=== PATIENT | male | born 1950 | race Caucasian/White ===

== ENCOUNTER 2017-10-08 15:07 | Emergency (ER) | payer MEDICARE ==
[~2017-10-08] VITALS: Ht 170.2 cm; Wt 74.8 kg
[~2017-10-08 15:07] MED LIST: CYCL10 PO; Cymbalta60 MG PO; HYDR1TAB94 PO; IBUP600 PO; IBUP800 PO; LISI20 PO; MELO7.5 PO; Norco 5-325 Ta1 EACH PO; OXYACE5T PO; PRED20 PO; Ultram50 MG PO
[2017-10-08] MEDS ORDERED: Norco 5-325 Ta1 EACH PO (15:50)
== END 2017-10-08 16:00 | disposition home or self-care (01) ==
LOC: ER 15:07
DX: S68.021A Partial traumatic metacarpophalangeal amputation of right thumb, initial encounter (principal); I10 Essential (primary) hypertension; F17.210 Nicotine dependence, cigarettes, uncomplicated; Z88.8 Allergy status to other drugs, medicaments and biological substances; Z79.899 Other long term (current) drug therapy; W27.0XXA Contact with workbench tool, initial encounter
CPT/HCPCS: 73140; 99283

== ENCOUNTER 2018-03-14 11:32 | Emergency (ER) | payer MEDICARE ==
[~2018-03-14] VITALS: Ht 167.6 cm; Wt 68.0 kg
[2018-03-14 12:04] LABS: Source, Urine Voided
[2018-03-14 12:07] LABS: BASOPHILS ABSOLUTE AUTO 0.04 K/mm3 (0.00-0.23); BASOPHILS PERCENT AUTO 1 % (0-2); EOSINOPHILS ABSOLUTE AUTO 0.13 K/mm3 (0.00-0.68); EOSINOPHILS PERCENT AUTO 2 % (0-6); Hematocrit 43.2 % (37.0-53.0); Hemoglobin 14.7 g/dL (13.5-17.5); IMMATURE GRAN ABSOLUTE AUTO 0.01 K/mm3 (0.00-0.10); IMMATURE GRAN PERCENT AUTO 0 % (0-1); LYMPHOCYTES ABSOLUTE AUTO 1.37 K/mm3 (0.84-5.20); LYMPHOCYTES PERCENT AUTO 21 % (21-46); MONOCYTES ABSOLUTE AUTO 0.63 K/mm3 (0.16-1.47); MONOCYTES PERCENT AUTO 9 % (4-13); Mean Corpuscular HGB 32.7 pg (26.0-34.0); Mean Corpuscular Volume 96 fL (80-100); Mean Platelet Volume 11.7 fL (9.1-12.4); NEUTROPHILS PERCENT AUTO 68 % (41-73); Platelet Count 188 K/mm3 (150-400); RDW Coefficient Variation 13.2 % (11.7-14.2); RDW Standard Deviation 46.6 fL (35.1-46.3); Red Blood Cell Count 4.49 M/mm3 (4.30-5.90); White Blood Cell Count 6.68 K/mm3 (4.00-11.30)
[2018-03-14 12:10] LABS: Appearance, Urine Clear (Clear); Bilirubin, Urine Neg (Neg); Blood, Urine 1+ (Neg); Color, Urine Amber (P-Yellow); Glucose Qualitative, Urine Neg (Neg); Ketones, Urine Neg (Neg); Leukocyte Esterase, Urine 1+ (Neg); Nitrite, Urine Neg (Neg); Protein, Urine 2+ (Neg); Urobilinogen, Urine 1+ (Normal)
[2018-03-14 12:26] LABS: Alanine Aminotransfer (ALT/SGP 25 U/L (12-78); Albumin, Blood 3.8 g/dL (3.4-5.0); Albumin/Globulin Ratio 1.1 (0.8-1.8); Alk Phos 79 U/L (50-136); Anion Gap 8 mmol/L (6-16); Aspartate Aminotrans (AST/SGOT 17 U/L (12-37); Bilirubin, Total 0.4 mg/dL (0.1-1.0); Blood Urea Nitrogen 17 mg/dL (8-24); Bun/Creatinine Ratio 13.9 (12.0-20.0); CO2, Blood 26 mmol/L (21-32); Calcium, Blood 8.7 mg/dL (8.5-10.1); Chloride, Blood 108 mmol/L (98-108); Creatinine, Blood 1.22 mg/dL (0.60-1.20); Globulin, Blood 3.6 g/dL (2.2-4.0); Glomerular Filtration Rate >60 (60-); Glucose, Blood 98 mg/dL (70-99); Potassium, Blood 3.7 mmol/L (3.5-5.5); Sodium, Blood 142 mmol/L (136-145); Total Protein, Blood 7.4 g/dL (6.4-8.2)
[2018-03-14 12:30] LABS: Hyaline Casts 0-2 /lpf (0-2)
[2018-03-14 12:32] LABS: Bacteria Few /hpf; Squamous Epithelial Cells Few /hpf (Few)
[2018-03-14] MEDS ORDERED: VICODIN 5-3001 EACH PO (14:58)
== END 2018-03-14 15:04 | disposition home or self-care (01) ==
LOC: ER 11:32
PROVIDERS: Emergency Medicine
DX: N20.0 Calculus of kidney (principal); Z88.8 Allergy status to other drugs, medicaments and biological substances; Z79.899 Other long term (current) drug therapy; I10 Essential (primary) hypertension; F17.210 Nicotine dependence, cigarettes, uncomplicated
CPT/HCPCS: 36415; 74176; 80053; 81001; 83690; 85025; 87086; 93005; 93010; 96374; 99284-25; J3010

== ENCOUNTER 2018-09-10 10:14 | Inpatient (IN) | payer MEDICARE ==
[~2018-09-10] VITALS: Ht 170.2 cm; Wt 65.1 kg
[~2018-09-10 10:14] MED LIST changes: +VICODIN 5-3001 EACH PO
[2018-09-10] MEDS ORDERED: LISI20 PO (10:50)
[2018-09-10 10:53] LABS: BASOPHILS ABSOLUTE AUTO 0.04 K/mm3 (0.00-0.23); BASOPHILS PERCENT AUTO 1 % (0-2); EOSINOPHILS ABSOLUTE AUTO 0.14 K/mm3 (0.00-0.68); EOSINOPHILS PERCENT AUTO 2 % (0-6); Hematocrit 46.4 % (37.0-53.0); Hemoglobin 15.2 g/dL (13.5-17.5); IMMATURE GRAN ABSOLUTE AUTO 0.02 K/mm3 (0.00-0.10); IMMATURE GRAN PERCENT AUTO 0 % (0-1); LYMPHOCYTES ABSOLUTE AUTO 1.42 K/mm3 (0.84-5.20); LYMPHOCYTES PERCENT AUTO 17 % (21-46); MONOCYTES ABSOLUTE AUTO 0.66 K/mm3 (0.16-1.47); MONOCYTES PERCENT AUTO 8 % (4-13); Mean Corpuscular HGB Conc 32.8 g/dL (31.5-36.5); Mean Corpuscular Volume 98 fL (80-100); Mean Platelet Volume 11.8 fL (9.1-12.4); NEUTROPHILS ABSOLUTE AUTO 5.93 K/mm3 (1.96-9.15); NEUTROPHILS PERCENT AUTO 72 % (41-73); Platelet Count 202 K/mm3 (150-400); RDW Coefficient Variation 13.9 % (11.7-14.2); RDW Standard Deviation 50.7 fL (35.1-46.3); Red Blood Cell Count 4.75 M/mm3 (4.30-5.90); White Blood Cell Count 8.21 K/mm3 (4.00-11.30)
[2018-09-10 11:24] LABS: Alanine Aminotransfer (ALT/SGP 28 U/L (12-78); Albumin, Blood 3.9 g/dL (3.4-5.0); Albumin/Globulin Ratio 1.1 (0.8-1.8); Alk Phos 89 U/L (50-136); Anion Gap 6 mmol/L (6-16); Aspartate Aminotrans (AST/SGOT 23 U/L (12-37); Bilirubin, Total 0.7 mg/dL (0.1-1.0); Blood Urea Nitrogen 20 mg/dL (8-24); Bun/Creatinine Ratio 21.3 (12.0-20.0); CO2, Blood 25 mmol/L (21-32); Calcium, Blood 8.8 mg/dL (8.5-10.1); Chloride, Blood 108 mmol/L (98-108); Creatinine, Blood 0.94 mg/dL (0.60-1.20); Globulin, Blood 3.6 g/dL (2.2-4.0); Glomerular Filtration Rate >60 (60-); Glucose, Blood 102 mg/dL (70-99); Sodium, Blood 139 mmol/L (136-145); Total Protein, Blood 7.5 g/dL (6.4-8.2)
[2018-09-10 11:35] LABS: Troponin I 0.148 ng/mL (0.000-0.040)
--- NOTE | 2018-09-10 14:56 | NUR ---
ECHOCARDIOGRAM COMPLETED
--- NOTE | 2018-09-10 21:00 | NUR ---
PATIENT IS A NEW ADMIT FROM THE ED. PATIENT ARRIVED VIA W/C AND SELF TRANSFER TO BED. AXO 4 AND INDEPENDENT. PATIENT ORIENTED TO ROOM AND CALL LIGHT SYSTEM. REPORTS GENERAL BACK/NECK PAIN AND MEDICATED IN ED. DENIES CHEST PAIN, SOB AND N/V. ON 2L O2 NC AND RA BASELINE. FAMILY PRESENT ON ADMIT. CALL LIGHT IN REACH.
--- NOTE | 2018-09-10 21:24 | NUR ---
CONTRACT ADMINISTRATION SPECIALIST REPORTS NSR AT 61. PATIENT AXOX 4. CALL LIGHT IN REACH.
--- NOTE | 2018-09-11 03:37 | NUR ---
SHIFT SUMMARY PATIENT HAD NO ACUTE CHANGES OBSERVED THIS SHIFT. NEW ADMIT FROM ED. AXO X4 AND INDEPENDENT IN THE ROOM. FAMILY PRESENT ON ADMIT. ON 2L O2 NC AND RA BASELINE. PIV REMAINS INTACT. ASSEMBLER CONVERTIBLE TOP REPORTS NSR 61. NICOTINE PATCH PLACED PER EMAR. TAKES MEDICATION WHOLE WITH WATER. CIWA=ONE FOR ANXIETY. PATIENT REPORTS DRINKING 12 OZ OF VODKA NIGHTLY. DENIES CHEST PAIN AND N/V. FEELS SOB W/ANXIETY. TROPONIN DECREASED FROM 0.183 TO 0.151. PATIENT ABLE TO SLEEP AFTER FAMILY LEFT. CALL LIGHT IN REACH. BED IN LOWEST POSITION. WILL CONTINUE TO MONITOR UNTIL DAY SHIFT NURSE ASSUMES CARE.
--- NOTE | 2018-09-11 09:20 | NUR ---
PT PLEASANT COOP A/O. DENIES CHEST PAIN, PRESSURE, ADMITS TO WEAKNESS OVER LAST FEW MONTHS. H/R IRREG, NO MURMER NOTED. PER TELE: NSR AT 64 WITH PAC'S. LUNGS CLEAR, RESP EASY, UNLABORED. ON R.A. BT X4 LAST BM YEST. VOIDS PER URINAL. BED IN LOW POSITION,C ALL LITE IN REACH, CALLS APPROP. INDEPENDANT IN ROOM.
--- NOTE | 2018-09-11 10:00 | NUR ---
DR CELESTIN IN ROOM/. PENDING ANGIO TOMORROW AM. OKAY EAT TODAY. HOLD XAMALORIETO. NPO MIDNITE.
[2018-09-11 10:10] LABS: U Amphetamine Screen Not Detected; U Barbituate Screen Not Detected; U Benzodiazapine Screen DETECTED; U Buprenorphine Screen Not Detected; U Cannabinoids Screen DETECTED; U Cocaine Screen Not Detected; U Methadone Screen Not Detected; U Methamphetamine Screen Not Detected; U Opiates Screen Not Detected; U Oxycodone Screen Not Detected; U Phencyclidine Screen Not Detected; U Propoxyphene Screen Not Detected
--- NOTE | 2018-09-11 13:54 | NUR ---
CALLED DR KASPER PT CONTINUED PAIN AND FEELING OF SOB. SHE TO MAKE ORDERS ON PK.
--- NOTE | 2018-09-11 17:42 | NUR ---
PT H/A REDUCED TO HALF OF ORIGINAL PAIN. SKELAXIN STATED HELPED. HAS BEEN RESTING THIS AFT. PENDING ANGIO TOMORROW. DISCUSSED PROCEDURE WITH AND PATIENT. IS APPRECIATIVE OF BEING ABLE TO UNDERSTAND. DENNIES TREMORS, HALLUCINATIONS, LIGHT ANX FROM PENDING ANGIO AND HEADACHE. BED IN LOW POSITION, CALL LITE IN REACH, CALLS APPROP
[2018-09-12 05:06] LABS: International Normalized Ratio 1.14; Prothrombin Time Results 11.9 Sec (9.7-11.5)
--- NOTE | 2018-09-12 05:39 | NUR ---
*SHIFT SUMMARY* PATIENT IS ALERT AND ORIENTED. PATIENT ON TELE, NSR WITH PAC'S AT 60BPM PER SAW HANDLE ASSEMBLER AT 0540. INDEPENDENT IN ROOM. CIWA SCORE OF 0. NO SIGNS OF ETOH WITHDRAWL. PT HAS BEEN NPO SINCE MIDNIGHT. PLAN FOR PT TO HAVE ANGIOGRAM TODAY. VITAL SIGNS ARE STABLE. CALL LIGHT IN REACH, BED LOWERED AND LOCKED.
[2018-09-12 06:17] LABS: BASOPHILS ABSOLUTE AUTO 0.03 K/mm3 (0.00-0.23); BASOPHILS PERCENT AUTO 1 % (0-2); EOSINOPHILS ABSOLUTE AUTO 0.12 K/mm3 (0.00-0.68); EOSINOPHILS PERCENT AUTO 2 % (0-6); Hematocrit 42.2 % (37.0-53.0); Hemoglobin 13.7 g/dL (13.5-17.5); IMMATURE GRAN ABSOLUTE AUTO 0.01 K/mm3 (0.00-0.10); IMMATURE GRAN PERCENT AUTO 0 % (0-1); LYMPHOCYTES ABSOLUTE AUTO 1.35 K/mm3 (0.84-5.20); LYMPHOCYTES PERCENT AUTO 21 % (21-46); MONOCYTES PERCENT AUTO 11 % (4-13); Mean Corpuscular HGB 32.2 pg (26.0-34.0); Mean Corpuscular HGB Conc 32.5 g/dL (31.5-36.5); Mean Corpuscular Volume 99 fL (80-100); Mean Platelet Volume 11.9 fL (9.1-12.4); NEUTROPHILS ABSOLUTE AUTO 4.16 K/mm3 (1.96-9.15); NEUTROPHILS PERCENT AUTO 65 % (41-73); Platelet Count 175 K/mm3 (150-400); RDW Coefficient Variation 13.6 % (11.7-14.2); RDW Standard Deviation 49.8 fL (35.1-46.3); Red Blood Cell Count 4.26 M/mm3 (4.30-5.90); White Blood Cell Count 6.37 K/mm3 (4.00-11.30)
[2018-09-12 06:23] LABS: Anion Gap 9 mmol/L (6-16); Blood Urea Nitrogen 20 mg/dL (8-24); Bun/Creatinine Ratio 22.5 (12.0-20.0); CO2, Blood 20 mmol/L (21-32); Calcium, Blood 8.6 mg/dL (8.5-10.1); Chloride, Blood 112 mmol/L (98-108); Creatinine, Blood 0.89 mg/dL (0.60-1.20); Glomerular Filtration Rate >60 (60-); Glucose, Blood 90 mg/dL (70-99); Potassium, Blood 3.5 mmol/L (3.5-5.5); Sodium, Blood 141 mmol/L (136-145)
--- NOTE | 2018-09-12 08:58 | NUR ---
PT TO HEART CENTER FOR ANGIOGRAM.
--- NOTE | 2018-09-12 11:11 | NUR ---
PT FROM PROCEDURE TO [facility]ART CENTER RECOVERY ROOM AWAITING BED FOR APPROPRIATE CARE. HAS 7F SHEATH IN ANTECUBITAL SPACE VEIN FROM PROCEDURE, WELL SPLINT BOARD TO R WRIST/FA 2 TO R RADIAL ARTERIOTOMY WITH TR BAND (9 ML AIR) AT 1045. COMPLETED ANCEF 2 GRAMS IV. VENOUS SHEATH REMOVED; APPROX 10 MIN MANUAL COMPRESSION APPLIED TO SITE WITH AID OF SHWETHA PAD. TEGADERM DSG APPLIED. PT TRANSFERRED BY WC TO PCU #2; REPORT GIVEN (SEE TRANSFER OF CARE).
--- NOTE | 2018-09-12 18:02 | NUR ---
SHIFT SUMMARY PT RECEIVED FROM MEDICAL FLOOR VIA [facility]. RIGHT WRIST SOFT, NO BLEED OR HEMATOMA, TR BAND CDI. RIGHT ELBOW SOFT, NO BLEED OR HEMATOMA, OPSITE / SHWETHA DRSG CDI. ALL AIR REMOVED FROM TR BAND PER PROTOCOL. HEMOSTASIS OBTAINED. TR BAND REMOVED FROM RIGHT WRIST, OPSITE APPLIED. RIGHT WRIST SOFT, NO BLEED OR HEMATOMA, OPSITE CDI. PT AMBULATING INDEPENDENTLY IN THE ROOM AND AROUND THE NURSING UNIT. WILL CONTINUE TO MONITOR.
--- NOTE | 2018-09-12 19:00 | NUR ---
ASSUMED CARE- PT CARE ASSUMED AT APPROXIMATELY 1900. PT IS CURRENTLY AOX4. R RADIAL SITE WITH TEGADERM DRESSING AND ARM BOARD IN PLACE. PINPOINT INCISION WITH NO NOTED DRAINAGE. NO BRUISING, HEMATOMA OR SWELLING NOTED TO AREA. PT DENIES PAIN ON PALPATION. R AC SITE WITH SHWETHA DRESSINS WITH PINPOINT DOT OF RED, DRY DRAINAGE, COVERED WITH SHWETHA DRESSING. PT DENIES PAIN OR TENDERNESS TO SITE. CURRENT CIWA OF 8 DUE TO RESTLESSNESS AND ANXIETY. WILL MEDICATE PER ORDERS. BED IN LOW POSITION, CALL LIGHT IN REACH.
--- NOTE | 2018-09-12 22:29 | NUR ---
PROVIDER CONTACTED PT REPORTS FEELING ANXIOUS AND RESTLESS AT START OF SHIFT- CIWA OF 8 AND MEDICATED ORDERED. PT REPORTS CONTINUED ANXIETY THAT HAS DECREASED SINCE MEDICATION ADMINISTRATION. ANGE LUCAS CONTACTED ABOUT POTENTIAL ADDITION OF MEDICATION FOR ANXIETY THAT IS UNRELATED TO CIWA. ORDERS RECEIVED FOR ONE TIME DOSE OF LIBRIUM AND CONTINUED MONITORING OF CIWA WELL EDUCATION OF NONPHARMACOLOGIC TECHNIQUES OF ANXIETY RELIEF. WILL INPUT ORDER AND CONTINUE MONITORING PT.
[2018-09-13 04:27] LABS: Anion Gap 8 mmol/L (6-16); Blood Urea Nitrogen 21 mg/dL (8-24); Bun/Creatinine Ratio 25.5 (12.0-20.0); CO2, Blood 20 mmol/L (21-32); Calcium, Blood 8.5 mg/dL (8.5-10.1); Chloride, Blood 113 mmol/L (98-108); Creatinine, Blood 0.82 mg/dL (0.60-1.20); Glomerular Filtration Rate >60 (60-); Glucose, Blood 100 mg/dL (70-99); Magnesium, Blood 2.1 mg/dL (1.6-2.4); Sodium, Blood 141 mmol/L (136-145)
--- NOTE | 2018-09-13 06:03 | NUR ---
SHIFT SUMMARY- PT HAS REMAINED AOX4 THROUGHOUT SHIFT. VSS. PLEASANT AND COOPERATIVE WITH CARE. R RADIAL SITE HAS REMAINED UNCHANGED THROUGHOUT SHIFT, NO BRUISING, SWELLING OR HEMATOMA NOTED- PT DENIES PAIN ON PALPATION. PT REMOVED ARM BOARD IN HIS SLEEP, BUT WAS EDUCATED ON IMPORTANCE OF KEEPING IT IN PLACE FOR 24 HRS TO ENCOURAGE MINIMAL USE OF R WRIST- PT VERBALIZED UNDERSTANDING AND ALLOWED ARM BOARD TO BE REPLACED. PT HAS NOT HAD ANY MORE EXCESSIVE ANXIETY. CIWA IS CURRENTLY BETWEEN 2-4 DUE TO MINOR RESTLESSNESS. NO OTHER CHANGES FROM INITIAL ASSESSMENT. WILL CONTINUE TO MONITOR AND REPORT TO ONCOMING SHIFT RN. BED IN LOW POSITION, CALL LIGHT IN REACH.
--- NOTE | 2018-09-13 12:34 | NUR ---
AM NOTE PT RESTING QUIETLY. DENIED ANY NEEDS AT THIS TIME. UP SBA TO BR. PT CARDIAC RYTHM AT REST IS SR WITH PAC. WHEN HE GETS UP TO BR HIS HR INCREASES TO 140 + AND CHAMGES TO AFIB. DR CELESTIN AWARE. WILL BE STARTING AMIODORONE TODAY. PT DENIED DIZZINESS OR CHEST PAIN WITH ACTIVITY. BP STABLE. VOIDING WELL. CIWA LOW. MILD ANXIETY. PT EXPRESSED FATIGUE MOSTLY. CONTINUE POT.
--- NOTE | 2018-09-13 17:54 | NUR ---
EVENING NOTE PT ALERT AND OREINTED. MEDCIATED WITH LIBRIUM X1. VSS. PT C/O OF MUSCLE SPASMS IN HIS HANDS. MEDICATED WITH SKALAXINE X1. UP SBA. GAIT STEADY. PERIODS OF AFIB LESSENED AFTER AMIODORONE GIVEN. SR WITH PAC AT REST. GOOD APPETITE. JOLANTA FROM [facility] CALLED TO CONFIRM LIFE VEST PLACMENT FOR PT. SHE WILL STOP BY TOMORROW. CONTINUE POT.
--- NOTE | 2018-09-14 06:37 | NUR ---
SHIFT SUMMARY PATIENT PLEASENT AND COOPERATIVE THROUGHOUT THE NIGHT. PATIENT ANXIOUS LAST NIGHT AND SLIGHTLY AGITATED STATING THAT THERE WAS A LOT GOING ON WITH HIS FAMILY TONIGHT AND THAT HE HAS A LOT ON HIS MIND BECAUSE OF IT. HOWEVER, PATIENT APPEARED TO SLEEP WELL THROUGHOUT THE NIGHT. PATIENT'S CIWA CHARTED, PATIENT MEDICATED ACCORDINGLY PER EMAR. VITAL SIGNS CHARTED. NO NEW BLEEDING OR HEMATOMA FORMATION AT PATIENTS ANGIO ACCESS SITES NOTED. WILL CONTINUE TO MONITOR PATIENT AND REPORT TO ONCOMING RN.
--- NOTE | 2018-09-14 10:49 | NUR ---
BEGINNING OF SHIFT Assumed care at 0700. Report recieved from Emily GARCIA. Pt on room air. Shift assessment completed. Pt states anxiety. Meds per orders. Bed in lowest position. Call light in reach. Pt denies need at this time.
[2018-09-14] MEDS ORDERED: LISI5 PO (13:33)
[2018-09-14] MEDS ORDERED: Amiodarone HCl400 MG PO (13:34)
[2018-09-14] MEDS ORDERED: CHLO25 PO (13:34)
[2018-09-14] MEDS ORDERED: Cymbalta60 MG PO (13:35)
[2018-09-14] MEDS ORDERED: METO25ER PO (13:36)
[2018-09-14] MEDS ORDERED: NICO21TP TOP (13:38)
[2018-09-14] MEDS ORDERED: XARELTO20 MG PO (13:39)
[2018-09-14] MEDS ORDERED: TORSE20 PO (13:42)
[2018-09-14] MEDS ORDERED: SPIR25 PO (13:42)
[2018-09-14] MEDS ORDERED: Aspercreme 1035.4 GM TOP (13:43)
--- NOTE | 2018-09-14 18:54 | NUR ---
DISCHARGE SUMMARY Pt discharged from unit at 1805. Pt had life vest in posession at time of discharge. Life vest brought to unit by Katty, who spent one hour in the room to educate the pt. This RN then provided discharge education. Medications notified to [facility], which will be closed by the time the family departs from the hospital. Pt given one dose of amiodarone to take at home, okay per elementary school science teacher Amy and clinical coordinator JOSE Melgar. Discharge medications reviewed with pt, including which medications are new and which medications need to be taken tonight. Medication side effects discussed with pt. This RN discussed importance of cardiac meds and anticoagulant and stressed that these medications are not to be self-discontinued and pt risks having harmful cardiac arrhythmia if he decides to stop taking the medications without consulting his primary care or access database developer. Pt verbalizes understanding. Pt has appointment with his primary care tomorrow and with caridology in one week. Discharge appoinments were scheduled by this RN. Pt verbalizes understanding of going to these scheduled appointments. Pt departed from unit via wheelchair, accompanied by his spouse and student nurse Tex.
== END 2018-09-14 18:00 | disposition home or self-care (01) | DRG 287 ==
LOC: ER 10:14 → MEDS 13:13 → ERHOLD 13:13 → PCU 19:32 → MEDS 19:35 → PCU 09-12 08:50
PROVIDERS: Emergency Medicine; Internal Medicine; Internal Medicine Cardiovascular Disease; ADMIT Hospitalist
PROC: B2111ZZ Fluoroscopy of Multiple Coronary Arteries using Low Osmolar Contrast (ICD-10-PCS; principal; 2018-09-12)
PROC: 4A023N8 Measurement of Cardiac Sampling and Pressure, Bilateral, Percutaneous Approach (ICD-10-PCS; 2018-09-12)
DX: I42.6 Alcoholic cardiomyopathy (principal); I24.9 Acute ischemic heart disease, unspecified; F10.239 Alcohol dependence with withdrawal, unspecified; M19.90 Unspecified osteoarthritis, unspecified site; M54.9 Dorsalgia, unspecified; G89.29 Other chronic pain; F17.210 Nicotine dependence, cigarettes, uncomplicated; E78.5 Hyperlipidemia, unspecified; Z79.82 Long term (current) use of aspirin; I48.0 Paroxysmal atrial fibrillation; I27.20 Pulmonary hypertension, unspecified; I50.9 Heart failure, unspecified; I11.0 Hypertensive heart disease with heart failure
CPT/HCPCS: 36415; 71046; 80048; 80053; 83735; 83880; 84484; 85025; 85610; 86850; 86900; 86901; 90686; 93005; 93010; 93306; 93460; 96361; 96374; 96375; 99152; 99153; 99285-25; A9270-GY; C1769; C1887; C1894; G0008; J0360; J0690; J1644; J2060; J2250; J3010; J7030; J7120; Q9967

== ENCOUNTER 2020-04-30 11:53 | Emergency (ER) | payer MEDICARE, OTHER ==
[~2020-04-30] VITALS: Ht 170.2 cm; Wt 68.0 kg
[~2020-04-30 11:53] MED LIST changes: +Amiodarone HCl400 MG PO; +Aspercreme 1035.4 GM TOP; +CHLO25 PO; +LISI5 PO; +METO25ER PO; +NICO21TP TOP; +SPIR25 PO; +TORSE20 PO; +XARELTO20 MG PO
[2020-04-30] MEDS ORDERED: Cymbalta60 MG PO (12:17)
== END 2020-04-30 12:24 | disposition home or self-care (01) ==
LOC: ER 11:53
DX: Z76.0 Encounter for issue of repeat prescription (principal); I10 Essential (primary) hypertension; F17.210 Nicotine dependence, cigarettes, uncomplicated; Z88.8 Allergy status to other drugs, medicaments and biological substances; Z79.01 Long term (current) use of anticoagulants; Z79.899 Other long term (current) drug therapy
CPT/HCPCS: 99281

== ENCOUNTER 2020-05-14 11:21 | Emergency (ER) | payer MEDICARE, OTHER ==
[~2020-05-14] VITALS: Ht 170.2 cm; Wt 68.0 kg
[2020-05-14] MEDS ORDERED: DULOXETINE HCL60 M1 PO (15:18)
[2020-05-14] MEDS ORDERED: AMLODIPINE BESYL5 MG PO (15:18)
[2020-05-14] MEDS ORDERED: LOSARTAN POTASS25 M2 PO (15:18)
[2020-05-14] MEDS ORDERED: XARELTO20 M1 PO (15:18)
[2020-05-14] MEDS ORDERED: Norco 10-325 T1 EACH PO (15:20)
[2020-05-14] MEDS ORDERED: LIDO700A20 TOP (15:20)
== END 2020-05-14 15:23 | disposition home or self-care (01) ==
LOC: ER 11:21
DX: S22.32XA Fracture of one rib, left side, initial encounter for closed fracture (principal); I10 Essential (primary) hypertension; Z79.01 Long term (current) use of anticoagulants; Z88.8 Allergy status to other drugs, medicaments and biological substances; Z79.899 Other long term (current) drug therapy; Z87.891 Personal history of nicotine dependence; W01.10XA Fall on same level from slipping, tripping and stumbling with subsequent striking against unspecified object, initial encounter
CPT/HCPCS: 71101; 99283-25